=== PATIENT | female | born 1965 | race Asian ===

== ENCOUNTER 2016-07-17 11:47 | Emergency (ER) | payer OTHER ==
[~2016-07-17] VITALS: Ht 160 cm; Wt 74.5 kg
[2016-07-17 11:59] VITALS: Ht 160 cm; Wt 74.5 kg
[2016-07-17] MEDS ORDERED: CEFEPIME 2GM/50 ML (PMX) 50 ML IVPB STA (14:55)
[2016-07-17] MEDS ORDERED: ACETAMINOPHEN 325 MG TAB PO STA (14:55)
[2016-07-17] MEDS ORDERED: SODIUM CHLORIDE 0.9% 1L BAG IV* STA (14:55)
[2016-07-17] MEDS ORDERED: PRED5 PO (14:57)
[2016-07-17] MEDS ORDERED: MET25 PO (14:58)
[2016-07-17] MEDS ORDERED: FOLI-49 PO (14:58)
[2016-07-17] MEDS ORDERED: OMEP20CA16 PO (14:58)
[2016-07-17] MEDS ORDERED: PRAZ1CAP3 PO (14:59)
[2016-07-17] MEDS ORDERED: GABA300C16 PO (14:59)
[2016-07-17] MEDS ORDERED: DULO30CA47 PO (15:00)
[2016-07-17] MEDS ORDERED: TRAZ50TA18 PO (15:01)
[2016-07-17] MEDS ORDERED: AMLO5TAB4 PO (15:02)
--- NOTE | 2016-07-17 15:37 | RADRPT ---
PROCEDURE: Chest Radiograph. CLINICAL INDICATION: Sepsis TECHNIQUE: Single frontal chest radiograph. COMPARISON: None available FINDINGS: Heart size is within normal limits. Atherosclerotic calcifications are present. There is mild elev ation right hemidiaphragm with associated mild basilar atelectasis. No infiltrate or effusion is see n. The bones are intact. IMPRESSION: 1. No evidence of acute cardiopulmonary disease. 2. Atherosclerotic vascular disease. 3. Elevation of the right hemidiaphragm. RPTAT: KK .Henry Velásquez MD, MD Date Time Electronically viewed and signed by .Henry Velásquez MD, on 07/17/2016 15:36 .B/
[2016-07-17 15:49] LABS: ADD SCAN DIFF NO
[2016-07-17 15:55] LABS: BASOPHILS % 0.4 % (0.0-2.0); EOSINOPHILS % 0.3 % (0.0-7.0); HEMATOCRIT 40.1 % (37.0-47.0); HEMOGLOBIN 13.4 g/dl (12.0-16.0); LYMPHOCYTES # 2.3 10^3/ul (0.8-2.9); LYMPHOCYTES % 31.6 % (15.0-51.0); MEAN CORPUSCULAR HEMOGLOBIN 30.4 pg (29.0-33.0); MEAN CORPUSCULAR HGB CONC 33.4 g/dl (32.0-37.0); MEAN CORPUSCULAR VOLUME 90.9 fl (82.0-101.0); MEAN PLATELET VOLUME 11.5 fl (7.4-10.4); MONOCYTE # 0.7 10^3/ul (0.3-0.9); MONOCYTES % 9.4 % (0.0-11.0); NEUTROPHIL # 4.2 10^3/ul (1.6-7.5); PLATELET COUNT 194 10^3/UL (140-415); RED BLOOD COUNT 4.41 10^6/ul (4.20-5.40); RED CELL DISTRIBUTION WIDTH 14.3 % (11.5-14.5); WHITE BLOOD COUNT 7.2 10^3/ul (4.8-10.8)
[2016-07-17 16:03] LABS: ADD UMIC NO; URINE BILIRUBIN (Dip) NEGATIVE (NEGATIVE); URINE BLOOD (Dip) NEGATIVE (NEGATIVE); URINE COLOR LT. YELLOW (YELLOW); URINE GLUCOSE (Dip) NEGATIVE (NEGATIVE); URINE KETONES (Dip) NEGATIVE (NEGATIVE); URINE LEUKOCYTE ESTERASE (Dip) NEGATIVE (NEGATIVE); URINE NITRITE (Dip) NEGATIVE (NEGATIVE); URINE TOTAL PROTEIN (Dip) NEGATIVE (NEGATIVE); URINE UROBILINOGEN (Dip) 0.2 E.U./dL (0.1-1.0)
[2016-07-17 16:05] LABS: INR 1.06; PROTIME 13.8 Sec (12.2-14.2); PT RATIO 1.1
[2016-07-17 16:06] LABS: PARTIAL THROMBOPLASTIN TIME 30.3 Sec (25.0-35.0)
[2016-07-17 16:12] LABS: ALBUMIN 3.9 g/dl (3.3-4.9); CHLORIDE 99 mmol/L (97-110); POTASSIUM 3.9 mmol/L (3.5-5.1); SODIUM 137 mmol/L (135-144)
[2016-07-17 16:14] LABS: BILIRUBIN,INDIRECT 0.6 mg/dl (0-1.1); BILIRUBIN,TOTAL 0.6 mg/dl (0.2-1.3); CREATININE 0.56 mg/dl (0.44-1.00)
[2016-07-17 16:15] LABS: ALANINE AMINOTRANSFERASE 69 IU/L (13-69); ALKALINE PHOSPHATASE 81 IU/L (42-121); ANION GAP 17 (8-16); ASPARTATE AMINO TRANSFERASE 99 IU/L (15-46); BLOOD UREA NITROGEN 8 mg/dl (7-20); CARBON DIOXIDE 25 mmol/L (21-31); GLUCOSE 103 mg/dl (70-220); TOTAL PROTEIN 10.4 g/dl (6.1-8.1)
[2016-07-17 16:16] LABS: CALCIUM 9.1 mg/dl (8.4-10.2)
[2016-07-17 16:36] LABS: TROPONIN-I < 0.012 ng/ml (0.00-0.12)
--- NOTE | 2016-07-17 16:42 | RADRPT ---
PROCEDURE: CT Abdomen and Pelvis without contrast. CLINICAL INDICATION: Abdominal and pelvic pain. Abdominal distension. TECHNIQUE: CT scan of the abdomen and pelvis without contrast was performed. Coronal and sagittal reformatted images were obtained from the axial source images. Images were reviewed on a high-resolu [employer] PACS workstation. Total exam DLP is 812.98 mGy-cm. CTDIvol is 13.62 mGy. One or more of the f ollowing dose reduction techniques were used: Automated exposure control, adjustment of the mA and/o r kV according to patient size, use of iterative reconstruction technique. COMPARISON: None. FINDINGS: The lung bases are normal. There is no pleural effusion. The liver is normal in size and mildly diffusely decreased in attenuation. There is no focal hepati c lesion. The gallbladder and bile ducts are normal. The spleen is normal in size. There is no focal splenic lesion. Both adrenals are normal with no enlargement or mass. The pancreas is unremarkable with no mass or evidence of pancreatitis. There is no renal mass or hydronephrosis. There is no renal calculus or ureteral calculus. The abdominal aorta is not dilated. There is no retroperitoneal lymphadenopathy or mass. There is no pelvic lymphadenopathy or mass. The bladder and distal ureters are normal. The periappendiceal region is unremarkable with no evidence of appendicitis. The appendix is well se en and appears normal. The bowel and mesentery are normal. There is no free fluid or free gas. The osseous structures are unremarkable with no fracture or lytic lesion. IMPRESSION: 1. Fatty metamorphosis of the liver. 2. No urinary tract calculus or hydronephrosis. 3. Normal appendix. 4. Otherwise normal noncontrast CT scan of the abdomen and pelvis. RPTAT: QQ .Romero Dewitt MD, MD Date Time Electronically viewed and signed by .Romero Dewitt MD, MD on 07/17/2016 16:42 .R/
[2016-07-17] MEDS ORDERED: IBUPROFEN 200 MG TAB PO ONE (17:30)
[2016-07-17 17:37] VITALS: BP 114/63; PULSE 85; RESP 20; TEMP 98.3
--- NOTE | 2016-07-17 18:49 | ERD ---
ER Documentation Chief Complaint Date/Time DATE: 07/17/16 TIME: 18:37 Chief Complaint Pt with AP and increased abd girth x 3 weeks. Pt with SLE, RA HPI 50-year-old female with a history of lupus, mixed connective tissue disease, and rheumatoid arthritis sent from her research professor, , for evaluation of her abdominal pain. She states she has been having increasing abdominal bloating for the past 3 weeks with intermittent, generalized, aching pain. She denies any associated nausea, vomiting, dysuria. She has had multiple episodes of intermittent, watery diarrhea. She denies any melena or hematochezia. This morning she noted a slight low-grade fever with no new symptoms otherwise. She denies any chest pain or shortness of breath. She has a mild headache, but she states she always gets mild headaches and this is not unusual for her. She denies any neck pain or stiffness. Of note, she is on prednisone daily and methotrexate. ROS All systems reviewed and are negative except as per history of present illness. Medications Home Meds Reported Medications Amlodipine Besylate* (Norvasc*) 5 Mg Tablet, 5 MG PO DAILY, TAB 07/17/16 Trazodone Hcl* (Trazodone Hcl*) 50 Mg Tablet, 50 MG PO QHS Y for SLEEP, #30 TAB 07/17/16 Duloxetine Hcl* (Duloxetine Hcl*) 30 Mg Capsule.dr, 30 MG PO DAILY, #30 CAP 07/17/16 Prazosin Hcl* (Prazosin Hcl*) 1 Mg Capsule, 1 MG PO HS, CAP 07/17/16 Gabapentin* (Gabapentin*) 300 Mg Capsule, 600 MG PO BID, #180 CAP 07/17/16 Methotrexate* (Methotrexate*) 2.5 Mg Tab, 20 MG PO WEEKLY, TAB 07/17/16 Omeprazole* (Omeprazole*) 20 Mg Capsule.dr, 20 MG PO DAILY, #30 CAP 07/17/16 Folic Acid* (Folic Acid*) 1 Mg Tablet, 1 MG PO DAILY, TAB 07/17/16 Prednisone* (Prednisone*) 5 Mg Tab, 15 MG PO DAILY, TAB 07/17/16 Allergies Allergies: Coded Allergies: sulfamethoxazole (Verified Allergy, Severe, 07/17/16) trimethoprim (Verified Allergy, Severe, 07/17/16) PMhx/Soc History of Surgery: Yes ( 2) Hx Miscellaneous Medical Probl: Yes (Lupus, rheumatoid arthritis, mixed connective tissue disease) Hx Alcohol Use: No Hx Substance Use: No Hx Tobacco Use: No Smoking Status: Never smoker FmHx Family History: No diabetes Physical Exam Vitals Vital Signs Date Time Temp Pulse Resp B/P Pulse Ox O2 Delivery O2 Flow Rate FiO2 07/17/16 17:37 98.3 85 20 114/63 97 Room Air 07/17/16 15:35 98.9 86 25 126/85 100 Room Air 07/17/16 11:59 100.5 94 18 145/84 97 Physical Exam Const: Well-appearing, nontoxic, no distress Head: Atraumatic Eyes: Normal Conjunctiva, PERRLA, EOMI, no scleral icterus ENT: Normal External Ears, Nose and Mouth. Normal oropharynx Neck: Full range of motion. No lymphadenopathy. No meningismus. Resp: Clear to auscultation bilaterally Cardio: Regular rate and rhythm, no murmurs Abd: Soft, non tender, non distended. Normal bowel sounds. No fluid wave. Skin: No petechiae or rashes Back: No midline or flank tenderness Ext: No cyanosis, or edema. Normal distal pulses. No significant joint swelling or overlying joint erythema. She does have the appearance of tightening of the skin of her extremities. Neur: Awake and alert and oriented 3, cranial nerves intact, strength and sensations intact in all 4 extremities Psych: Normal Mood and Affect Result Diagram: 07/17/16 1520 07/17/16 1520 Results 24 hrs Laboratory Tests Test 07/17/16 15:20 White Blood Count 7.210^3/ul Red Blood Count 4.4110^6/ul Hemoglobin 13.4g/dl Hematocrit 40.1% Mean Corpuscular Volume 90.9fl Mean Corpuscular Hemoglobin 30.4pg Mean Corpuscular Hemoglobin Concent 33.4g/dl Red Cell Distribution Width 14.3% Platelet Count 42880^3/UL Mean Platelet Volume 11.5fl Neutrophils % 58.0% Lymphocytes % 31.6% Monocytes % 9.4% Eosinophils % 0.3% Basophils % 0.4% Nucleated Red Blood Cells % 0.0/100WBC Neutrophils # 4.210^3/ul Lymphocytes # 2.310^3/ul Monocytes # 0.710^3/ul Eosinophils # 0.010^3/ul Basophils # 0.010^3/ul Nucleated Red Blood Cells # 0.010^3/ul Prothrombin Time 13.8Sec Prothrombin Time Ratio 1.1 INR International Normalized Ratio 1.06 Activated Partial Thromboplast Time 30.3Sec Urine Color LT. YELLOW Urine Clarity CLEAR Urine pH 7.0 Urine Specific [place] 1.020 Urine Ketones NEGATIVE Urine Nitrite NEGATIVE Urine Bilirubin NEGATIVE Urine Urobilinogen 0.2 E.U./dL Urine Leukocyte Esterase NEGATIVE Urine Hemoglobin NEGATIVE Urine Glucose NEGATIVE% Urine Total Protein NEGATIVE Sodium Level 137mmol/L Potassium Level 3.9mmol/L Chloride Level 99mmol/L Carbon Dioxide Level 25mmol/L Anion Gap 17 Blood Urea Nitrogen 8mg/dl Creatinine 0.56mg/dl Glucose Level 103mg/dl Lactic Acid Level 1.6mmol/L Calcium Level 9.1mg/dl Total Bilirubin 0.6mg/dl Direct Bilirubin 0.00mg/dl Indirect Bilirubin 0.6mg/dl Aspartate Amino Transf (AST/SGOT) 99IU/L Alanine Aminotransferase (ALT/SGPT) 69IU/L Alkaline Phosphatase 81IU/L Troponin I < 0.012ng/ml Total Protein 10.4g/dl Albumin 3.9g/dl Globulin 6.50g/dl Albumin/Globulin Ratio 0.60 Current Medications Medications (Trade) Dose Ordered Sig/Samanta Route PRN Reason Start Time Stop Time Status Last Admin Dose Admin Sodium Chloride (NS) 2,310 ml BOLUS OVER 2 HOURS STAT IV* 07/17/16 14:55 07/17/16 14:59 DC 07/17/16 15:54 Acetaminophen 650 mg 650 mg ONCE STAT PO 07/17/16 14:55 07/17/16 14:59 DC 07/17/16 15:54 Cefepime HCl (Maxipime 2gm/50 ml (Pmx)) 50 ml @ 100 mls/hr ONCE STAT IVPB 07/17/16 14:55 07/17/16 15:24 DC 07/17/16 16:00 Ibuprofen (Motrin) 400 mg ONCE ONCE PO 07/17/16 17:30 07/17/16 17:31 DC 07/17/16 17:19 Procedures/MDM EKG: Rate/Rhythm: Normal Sinus Rhythm QRS, ST, T-waves: No changes consistent w/ acute ischemia Impression: No evidence of ischemia or arrhythmia Chest x-ray without any acute abnormality CT abdomen and pelvis: 1. Fatty metamorphosis of the liver. 2. No urinary tract calculus or hydronephrosis. 3. Normal appendix. 4. Otherwise normal noncontrast CT scan of the abdomen and pelvis. RPTAT: QQ .Romero Dewitt MD, MD Date Time Electronically viewed and signed by .Romero Dewitt MD, MD on 07/17/2016 16:42 Labs: CBC is unremarkable CMP shows mild elevation AST, otherwise normal Urinalysis is normal Limited transthoracic echo performed by me Indication: Abdominal distention Pericardium: No effusion Cardiac: Normal contraction Image archived in the medical record. Limited abdominal ultrasound performed by me: Indication: See above Hepatorenal: No free fluid Perisplenic: No free fluid Pericystic: No free fluid MDM Patient is presenting with a low-grade fever and worsening abdominal pain and bloating for several weeks. Given her immunosuppression, sepsis workup was started. She was covered with cefepime IV. CT of the abdomen and pelvis did not show any acute abnormalities. Urinalysis does not show evidence of infection. Chest x-ray does not show evidence of pneumonia. Tylenol was given for her fever with improvement. Upon reexamination the patient's symptoms were stable and her abdominal exam remained benign. At this time I do not see a reason for the patient to be admitted. She has good follow-up and states she will follow-up with either her research professor or her primary care doctor tomorrow. I told her that we would call her with results of her blood cultures if abnormal and will have her come back if positive. I did offer her admission but she would have to be transferred to [facility] for insurance reasons. Patient states that if everything is normal right now on the exams that I have done, she would rather go home and follow-up with her primary care doctor or her research professor. She will return for any worsening symptoms. Severe Sepsis Assessment: Infectious Source: Possible intra-abdominal End organ damage indicated by: No evidence of endorgan injury Severe Sepsis Managment: Blood Cultures X 2 before broad spectrum antibiotics initiated within 3 hours of recognition. 30 ml/kg NS bolus Completed Initial Lactate: normal Repeat Lactate not indicated as initial < 2.0 Critical Care: Time: 35 minutes Treatments/Evaluations: Emergent fluid management, while maintaining close respiratory support. Immediate broad spectrum antibiotic therapy. Simultaneous assessment for possible sources in order to direct therapy. Consideration for invasive and chemical support to prevent respiratory or cardiac collapse. Septic Shock Assessment (1 hour post 30 ml/kg fluid bolus): Hypotension (SBP < 90 or 40 mmHg drop, MAP < 65): No Lactic acid > 4.0 No Departure Diagnosis: Primary Impression: Abdominal pain Abdominal location: generalized Qualified Code: R10.84 - Generalized abdominal pain Additional Impression: Fever Fever type: unspecified Qualified Code: R50.9 - Fever, unspecified fever cause Condition: Stable Patient Instructions: Abdominal Pain Referrals: DMITRIY PECK MD (PCP) Additional Instructions: Follow-up with your primary care doctor tomorrow. Return to the ER for any worsening symptoms. We will call you with the results of the blood culture if it is abnormal. BRIE WHEELER MD July 17, 2016 18:48
== END 2016-07-17 17:39 | disposition home or self-care (01) ==
LOC: E/R 11:47
DX: R10.84 Generalized abdominal pain (principal); R40.2252 Coma scale, best verbal response, oriented, at arrival to emergency department; R50.9 Fever, unspecified; R40.2142 Coma scale, eyes open, spontaneous, at arrival to emergency department; R40.2362 Coma scale, best motor response, obeys commands, at arrival to emergency department
CPT/HCPCS: 36415; 71010; 74176; 80053; 81003; 83605; 84484; 85025; 85610; 85730; 86850; 86900; 86901; 87040; 87086; 93005; 96374; J0692; J7030; Z7502; Z7610

== ENCOUNTER 2017-06-21 08:07 | Day surgery (SDC) | END 2017-06-21 13:51 | disposition home or self-care (01) ==